=== PATIENT | female | born 1990 | race Caucasian/White ===

== ENCOUNTER 2020-06-04 08:08 | Emergency (ER) | payer OTHER, MEDICAID, SELFPAY ==
--- NOTE | 2020-06-04 08:20 | DI.CT.S_ITS ---
PROCEDURE: CT HEAD/BRAIN WO CON INDICATIONS: Right-sided tingling and weakness TECHNIQUE: Noncontrast 4.5 mm thick angled axial sections acquired from the foramen magnum to the vertex, with coronal and sagittal reformats. For radiation dose reduction, the following was used: automated exposure control, adjustment of mA and/or kV according to patient size. COMPARISON: None. FINDINGS: Image quality: Excellent. CSF spaces: Basal cisterns are patent. No extra-axial fluid collections. Ventricles are normal in size and shape. Brain: No midline shift. No intracranial masses or hemorrhage. Shaw-white matter interface is normal. Skull and face: Calvarium and visualized facial bones are intact, without suspicious lesions. Sinuses: Visualized sinuses and mastoids are clear. IMPRESSION: No acute intracranial finding. Dictated by: Clyde Riggs M.D. on 06/04/2020 at 8:31 Approved by: Clyde Riggs M.D. on 06/04/2020 at 8:33
[2020-06-04 08:22] VITALS: BP 134/70; PULSE 66; RESP 18; TEMP 37; O2SAT 98
--- NOTE | 2020-06-04 08:39 | ED.NEUROSD ---
HPI - Neuro Symptoms/Deficit General Chief Complaint: Neuro Symptoms/Deficit Stated Complaint: Suspects stroke, one-sided tingling Time Seen by Provider: 06/04/20 08:14 Source: patient Mode of arrival: Wheelchair Limitations: no limitations History of Present Illness HPI Narrative: Patient is a 29-year-old female here for evaluation of multiple symptoms to include headache, high blood pressure, head feeling foggy, ?1 side tingling ?. She states that the middle of last week she had an elective . She is not having abdominal tenderness or vaginal bleeding. She was concerned that potentially she is having a stroke, precursor to a stroke, affects from the anesthesia. She took her blood pressure at home today and she states that was elevated. She came with a list of these blood pressures and shows that her systolic was anywhere from 120-140. She also feels like that she is having an irregular heart rhythm. On Anticoagulants: No Review of Systems Constitutional Constitutional: Reports fatigue, Denies fever(s), Reports headache(s) and Reports weakness Eyes Eyes: Reports exophthalmos and Reports change in vision ENT Ears, Nose, Mouth, and Throat: Reports dizziness, Reports headache(s) and Reports disequilibrium Cardiovascular Cardiovascular: Denies chest pain, Reports rapid heart rate, Reports irregular heart rhythm, Reports lightheadedness and Reports dyspnea Respiratory Respiratory: Reports dyspnea Gastrointestinal Gastrointestinal: Denies abdominal pain, Denies change in bowel habits, Denies nausea and Denies vomiting Genitourinary Genitourinary: Denies dysuria Genitourinary: Denies dysuria and Denies vaginal discharge Musculoskeletal Musculoskeletal: Denies back pain, Denies myalgias and Reports tingling Integumentary/Breasts Skin/Breast: Denies lesions and Denies rash Neurologic Neurologic: Denies abnormal movements, Denies abnormal speech, Reports dizziness, Reports headache(s), Reports tingling, Reports disequilibrium and Reports weakness Endocrine Endocrine: Reports fatigue Hematologic/Lymphatic On Anticoagulants: No Allergic/Immunologic Allergic/Immunologic: Denies urticaria Patient History Medical History Hypertension Social History Smoking Status: Current every day smoker Smoking Status: Current every day smoker tobacco type: cigarettes alcohol intake frequency: 0-2 drinks per day Substance Use Type: does not use Exam Initial Vital Signs Initial Vital Signs: Vital Signs Temperature 98.6 F 06/04/20 08:22 Pulse Rate 66 06/04/20 08:22 Respiratory Rate 18 06/04/20 08:22 Blood Pressure 134/70 06/04/20 08:22 Pulse Oximetry 98 06/04/20 08:22 Const General: comfortable and anxious Limitations: mental status not altered HENMT Head: normal to inspection and normocephalic Resp Effort & Inspection: normal respiratory effort Auscultation: clear to auscultation bilaterally Cardio Rate: regular rate Rhythm: regular rhythm GI Inspection: non-distended Skin Lesions: no lesions Rashes: no rashes Neuro General: patient alert, patient awake and patient oriented x3 Cranial Nerves: CN's II-XI intact bilaterally Cognition: normal cognition Speech: speech normal Gait: normal gait Motor: muscle tone normal throughout Sensory Exam: no sensory deficits noted Extrem General: normal to inspection and capillary refill normal Psych Appearance: grossly normal and well kempt Scores GCS Bony coma scale eye opening: Spontaneous Bony coma scale verbal response: Orientated Bony coma scale motor response: Obey commands Bony coma scale total score: 15 Course Orders Ordered: ED Orders 06/04/20 08:15 EKG-12 Lead Stat 06/04/20 08:20 CT head/brain wo con Stat 06/04/20 08:39 Complete Blood Count AUTO DIFF Stat Comprehensive Metabolic Panel Stat Ethanol (ETOH) Stat Lipase Stat Troponin & CK Cardiac Panel Stat Vital Signs Vital signs: Vital Signs - 8 hr 06/04/20 08:22 Temperature 98.6 F Pulse Rate 66 Respiratory Rate 18 Blood Pressure 134/70 Pulse Oximetry 98 MDM - Neuro Symptoms/Deficit Lab Data Attestation: I reviewed the patient's lab results. Result diagrams: 06/04/20 08:39 06/04/20 08:39 Labs: Lab Results 06/04/20 06/04/20 Range/Units 08:39 08:39 WBC 7.3 (4.5-11.0) X10^3/uL RBC 4.11 (4.0-5.2) X10^6/uL Hgb 12.1 (12.0-16.0) g/dL Hct 34.8 L (36-46) % MCV 84.6 (80-100) fL MCH 29.4 (26-34) PG MCHC 34.8 (30-36) % RDW 13.8 (11.6-14.8) % Plt Count 228 (150-400) X10^3/uL Neut % (Auto) 65.3 (50-75) % Lymph % (Auto) 25.9 (25-40) % [place] % (Auto) 6.5 (3-14) % Eos % (Auto) 1.3 L (2-4) % Baso % (Auto) 1.0 (0-2) % Neut # (Auto) 4800 (5903-6089) /uL Lymph # (Auto) 1900 (6961-3752) /uL [place] # (Auto) 500 (0-900) /uL Eos # (Auto) 100 (0-450) /uL Baso # (Auto) 100 (0-100) /uL Sodium 137 (137-145) mmol/L Potassium 3.6 (3.4-5.1) mmol/L Chloride 108 H (98-107) mmol/L Carbon Dioxide 24 (22-32) mmol/L BUN 11 (7-17) mg/dL Creatinine 0.70 (0.52-1.04) mg/dL Estimated GFR > 60.0 (>60) mL/min BUN/Creatinine Ratio 15.7 (6-22) Glucose 119 H (70-100) mg/dL Calcium 9.0 (8.4-10.2) mg/dL Total Bilirubin 0.3 (0.2-1.3) mg/dL AST 23 (14-36) IU/L ALT 14 (<35) IU/L Alkaline Phosphatase 50 (38-126) U/L Total Creatine Kinase 123 (30-135) U/L CK-MB (CK-2) 2.23 (<2.37) ng/mL CK-MB (CK-2) Rel Index 1.8 (1.5-5.0) % Troponin I < 0.012 (0.01-0.034) ng/mL Total Protein 6.8 (6.3-8.2) g/dL Albumin 3.7 (3.5-5.0) g/dL Globulin 3.1 (1.7-4.1) g/dL Albumin/Globulin Ratio 1.2 (1.0-2.8) Lipase 36 (23-300) U/L Ethyl Alcohol < 10 ( - 10) mg/dL Imaging Data CT scan - head: Radiologist's Impression: [address] [id number] Scan ReportSigned Patient: Linda AvilesMR#: [id number]: 1990Acct:[id number]/Sex: 29 / FDate of Service: 06/04/20Loc: EDAccession Number: [id number] Procedure: CT head/brain wo con Ordering Provider: Bony Mary D.O. PROCEDURE: CT HEAD/BRAIN WO CON INDICATIONS: Right-sided tingling and weakness TECHNIQUE: Noncontrast 4.5 mm thick angled axial sections acquired from the foramen magnum to the vertex, with coronal and sagittal reformats. For radiation dose reduction, the following was used: automated exposure control, adjustment of mA and/or kV according to patient size. COMPARISON: None. FINDINGS: Image quality: Excellent. CSF spaces: Basal cisterns are patent. No extra-axial fluid collections. Ventricles are normal in size and shape. Brain: No midline shift. No intracranial masses or hemorrhage. Shaw-white matter interface is normal. Skull and face: Calvarium and visualized facial bones are intact, without suspicious lesions. Sinuses: Visualized sinuses and mastoids are clear. IMPRESSION: No acute intracranial finding. Dictated by: Clyde Riggs M.D. on 06/04/2020 at 8:31 Approved by: Clyde Riggs M.D. on 06/04/2020 at 8:33 ECG Data Attestation: I personally reviewed and interpreted this ECG as follows: Prior ECG tracings: not available for review Interpretation: Sinus bradycardia Ventricular rate of 57 Normal axis Normal QRS Sinus arrhythmia No ST T wave changes MDM Narrative Medical decision making narrative: Patient is very anxious, seems annoyed about the questions that I am asking, has multiple varying positive review of systems. Her head CT EKG labs here and neurologic exam is unremarkable. I have low suspicion for CVA/TIA. I have a very high suspicion that this is an anxiety/mental health component to her symptoms. I tried to provide reassurance to the patient. I did give her information with regard to a primary care provider. I feel that we can hold on further workup for now patient could be safely discharged home. Patient and her mother have bedside expressed understanding and agreement. Discharge Plan Departure Patient Disposition: Home Clinical Impression: Distal paresthesia Instructions: DI for Numbness/Tingling Activity Restrictions/Additional Instructions: You can contact the health resource is coordinator here at [facility] at [phone]. This individual can help you establish a primary provider here in the area. Return to the emergency department for any new or worsening symptoms
[2020-06-04 08:47] LABS: Add Manual Diff / Slide Review NO; Basophils Absolute Auto 100 /uL (0-100); Eosinophils Absolute Auto 100 /uL (0-450); Eosinophils Percent Auto 1.3 % (2-4); Hematocrit 34.8 % (36-46); Hemoglobin 12.1 g/dL (12.0-16.0); Lymphocytes Absolute Auto 1900 /uL (1100-4500); Lymphocytes Percent Auto 25.9 % (25-40); Mean Corpuscular HGB Conc 34.8 % (30-36); Mean Corpuscular Hemoglobin 29.4 PG (26-34); Mean Corpuscular Volume 84.6 fL (80-100); Monocytes Absolute Auto 500 /uL (0-900); Monocytes Percent Auto 6.5 % (3-14); Neutrophils Absolute Auto 4800 /uL (1500-7000); Neutrophils Percent Auto 65.3 % (50-75); Platelet Count 228 X10^3/uL (150-400); Red Blood Cell Count 4.11 X10^6/uL (4.0-5.2); Red Cell Distribution Width 13.8 % (11.6-14.8); White Blood Cell Count 7.3 X10^3/uL (4.5-11.0)
[2020-06-04 08:58] LABS: Alanine Aminotransferase 14 IU/L (<35); Albumin 3.7 g/dL (3.5-5.0); Albumin Globulin Ratio 1.2 (1.0-2.8); Alkaline Phosphatase 50 U/L (38-126); Aspartate Aminotransferase 23 IU/L (14-36); BUN Creatinine Ratio 15.7 (6-22); Bilirubin Total 0.3 mg/dL (0.2-1.3); Blood Urea Nitrogen 11 mg/dL (7-17); Carbon Dioxide 24 mmol/L (22-32); Chloride 108 mmol/L (98-107); Creatine Kinase 123 U/L (30-135); Estimated Glomerular Filt Rate > 60.0 mL/min (>60); Ethanol (ETOH) < 10 mg/dL; Globulin 3.1 g/dL (1.7-4.1); Glucose 119 mg/dL (70-100); HEMOLYSIS < 15 (0-50); Lipase 36 U/L (23-300); Potassium 3.6 mmol/L (3.4-5.1); Sodium 137 mmol/L (137-145); Total Protein 6.8 g/dL (6.3-8.2)
[2020-06-04 09:08] LABS: Troponin I < 0.012 ng/mL (0.01-0.034)
[2020-06-04 09:13] LABS: CKMB % Relative Index 1.8 % (1.5-5.0); Creatine Kinase MB 2.23 ng/mL (<2.37)
[2020-06-04 09:30] VITALS: BP 132/72; PULSE 62; RESP 16; O2SAT 99
== END 2020-06-04 09:35 | disposition home or self-care (01) ==
PROVIDERS: Emergency Provider Emergency Medicine
DX: R20.2 Paresthesia of skin (principal); I10 Essential (primary) hypertension; H53.9 Unspecified visual disturbance; R06.00 Dyspnea, unspecified; R00.1 Bradycardia, unspecified
CPT/HCPCS: 36415; 70450; 80053; 80320; 82550; 82553; 83690; 84484; 85025; 93005; 99281; 99284

== ENCOUNTER → 2020-09-04 11:36 | Outpatient (CLI) | payer OTHER, MEDICAID, SELFPAY ==
--- NOTE | 2020-09-04 11:37 | DI.RAD.S_ITS ---
PROCEDURE: XR SHOULDER RT MIN 2V INDICATIONS: pain TECHNIQUE: 3 views of the shoulder were acquired. COMPARISON: None. FINDINGS: Bones: No fractures or dislocations. No suspicious bony lesions. Visualized ribs appear intact. Soft tissues: No suspicious soft tissue calcifications. IMPRESSION: No evidence acute bony abnormality of the right shoulder. If clinical suspicion and/or symptoms persist, further assessment with repeat plain films, or advanced imaging (e.g., CT, MRI, or bone scan) may be helpful for further assessment. Dictated by: Davian Evans M.D. on 09/04/2020 at 12:28 Approved by: Davian Evans M.D. on 09/04/2020 at 12:29
== END ==
PROVIDERS: PCP Family Medicine; Referring Provider Family Medicine; Visit Provider Family Medicine
DX: M25.519 Pain in unspecified shoulder (principal)
CPT/HCPCS: 73030

== ENCOUNTER 2021-01-19 19:34 | Emergency (ER) | payer OTHER, MEDICAID, SELFPAY ==
[2021-01-19 20:00] VITALS: BP 142/77; PULSE 106; RESP 15; TEMP 36.4; O2SAT 100; BMI 28.0
[2021-01-19 20:17] LABS: Add Manual Diff / Slide Review NO; Basophils Absolute Auto 100 /uL (0-100); Basophils Percent Auto 0.8 % (0-2); Eosinophils Absolute Auto 100 /uL (0-450); Eosinophils Percent Auto 0.6 % (2-4); Hematocrit 40.5 % (36-46); Hemoglobin 13.5 g/dL (12.0-16.0); Lymphocytes Absolute Auto 2400 /uL (1100-4500); Lymphocytes Percent Auto 25.9 % (25-40); Mean Corpuscular HGB Conc 33.4 % (30-36); Mean Corpuscular Hemoglobin 28.3 PG (26-34); Mean Corpuscular Volume 84.8 fL (80-100); Monocytes Absolute Auto 500 /uL (0-900); Monocytes Percent Auto 5.9 % (3-14); Neutrophils Absolute Auto 6100 /uL (1500-7000); Neutrophils Percent Auto 66.8 % (50-75); Platelet Count 222 X10^3/uL (150-400); Red Blood Cell Count 4.77 X10^6/uL (4.0-5.2); Red Cell Distribution Width 12.6 % (11.6-14.8); White Blood Cell Count 9.2 X10^3/uL (4.5-11.0)
[2021-01-19 20:25] LABS: BUN Creatinine Ratio 12.8 (6-22); Blood Urea Nitrogen 11 mg/dL (7-17); Carbon Dioxide 26 mmol/L (22-32); Chloride 104 mmol/L (98-107); Estimated Glomerular Filt Rate > 60.0 mL/min (>60); Glucose 91 mg/dL (70-100); Potassium 3.8 mmol/L (3.4-5.1); Sodium 138 mmol/L (137-145)
[2021-01-19 20:26] LABS: Alanine Aminotransferase 23 IU/L (<35); Albumin 4.6 g/dL (3.5-5.0); Albumin Globulin Ratio 1.3 (1.0-2.8); Alkaline Phosphatase 61 U/L (38-126); Aspartate Aminotransferase 29 IU/L (14-36); Bilirubin Total 1.1 mg/dL (0.2-1.3); Calcium 9.4 mg/dL (8.4-10.2); Globulin 3.5 g/dL (1.7-4.1); HEMOLYSIS < 15 (0-50); Lipase 38 U/L (23-300); Total Protein 8.1 g/dL (6.3-8.2)
--- NOTE | 2021-01-19 21:29 | DI.CT.S_ITS ---
PROCEDURE: CT ABDOMEN PELVIS W CON INDICATIONS: severe RLQ pain, appy? TECHNIQUE: After the administration of oral and IV contrast, axial sections were acquired from the lung bases to the pubic symphysis. Coronal and sagittal reformats were performed. For radiation dose reduction, the following was used: automated exposure control, adjustment of mA and/or kV according to patient size. COMPARISON: None. FINDINGS: Image quality: Excellent. Lung bases: Unremarkable. Heart: No significant findings. ABDOMEN: Liver: There is mild focal fatty infiltration in the anterior left hepatic lobe. Gallbladder: Unremarkable. Biliary ducts: Unremarkable. Pancreas: Unremarkable. Spleen: Unremarkable. Adrenal Glands: Unremarkable. Kidneys and Ureters: Unremarkable. Stomach and Bowel: Stomach and small bowel loops are normal in caliber and wall thickness. The appendix is normal in size with a small punctate appendiculith at its base but no inflammatory changes to suggest appendicitis. There are few colonic diverticula without acute diverticulitis. The descending and rectosigmoid colon demonstrate mild segmental wall thickening suggestive of a mild colitis. Peritoneum: There is a small amount of free fluid in the pelvis which appears within physiologic limits. No free air. Ventral Wall: No hernia. Abdominal Nodes: No retroperitoneal or mesenteric adenopathy by size criteria. Vessels: Aorta and inferior vena cava are normal in size. PELVIS: Pelvic Organs: There is a peripherally enhancing cyst within the right ovary measuring up to 2.0 cm consistent with a physiologic cyst. Uterus and ovaries appear within normal size limits. Bladder: Unremarkable. Pelvic Nodes: No enlarged lymph nodes. Miscellaneous: No inguinal hernias are seen. Bones: Unremarkable. IMPRESSION: 1. No evidence of appendicitis. 2. Peripherally enhancing cyst in the right ovary likely represents a physiologic cyst such as a corpus luteal cyst. 3. Mild segmental wall thickening in the descending and sigmoid colon suggestive of a mild colitis. Dictated by: Dewey Jurado M.D. on 01/19/2021 at 21:47 Approved by: Dewey Jurado M.D. on 01/19/2021 at 21:56
--- NOTE | 2021-01-19 21:29 | ED_ITS ---
HPI - Abdominal Pain General Chief Complaint: Abdominal Pain Stated Complaint: Possible Appe, Rt Sided Abd Pain Time Seen by Provider: 01/19/21 21:29 Source: patient Mode of arrival: Ambulatory Limitations: no limitations History of Present Illness HPI narrative: 30-year-old female daily smoker with noncontributory medical history presents with gradually worsening generalized and now right lower quadrant pain over the past 20 hours or so. Initially she just felt a bit queasy and unwell with generalized pain that has since located to her right lower quadrant. She has a decreased appetite and is nauseated but has not had any vomiting. She has felt chills but no measured fever. She states it is worse when she moves and improves with rest. She denies any change in bowel or bladder habits. She had clear liquids just prior to arrival and last had any food at about 2-3 p.m.. Related Data Home Medications Medication Instructions Recorded Confirmed No Known Home Medications 09/04/20 09/25/20 Allergies Allergy/AdvReac Type Severity Reaction Status Date / Time tramadol AdvReac Mild Hives, Verified 01/19/21 20:00 Vomitting Review of Systems Review of Systems Narrative: GENERAL: Denies chills, fatigue, malaise, fever, sweats. HEENT: Denies sinus pain, ear pain, sore throat, difficulty swallowing, di zziness. RESPIRATORY: Denies dyspnea, cough, wheezing, hemoptysis, sputum. CARDIOVASCULAR: Denies chest pain, palpitations, orthopnea, edema, GASTROINTESTINAL: See HPI : Denies dysuria, frequency, incontinence, hematuria, urinary retention. MUSCULOSKELETAL: denies weakness, joint pain, or bony pain SKIN: Denies rash, skin lesions, or other NEUROLOGIC: Denies weakness, headache, numbness, change in speech, confusion, seizures, incoordination. PSYCHIATRIC: No concerning psychosocial issues. 12 point review of systems is negative except for those stated above Patient History Medical History Acne Anxiety Benign familial tremor (~2017) Cardiac arrhythmia (~2019) Cervical somatic dysfunction Chicken pox (~1992) Chronic back pain (~2017) Chronic bilateral thoracic back pain Chronic low back pain Chronic neck pain Cranial somatic dysfunction Fractures (~2017) Headache (~2017) Hearing loss (~2017) Heavy menstrual period (~2003) Hip pain Hypertension (~2017) Lumbar region somatic dysfunction Memory problem (~2017) Migraines (~2019) Painful menstrual periods (~2003) Pelvic somatic dysfunction PTSD (post-traumatic stress disorder) (~2017) Recurrent sinusitis (~2019) Restless leg syndrome (~2019) Sacral region somatic dysfunction Scoliosis (~2004) Segmental and somatic dysfunction of abdomen and other regions Thoracic region somatic dysfunction Trauma (~2017) Vertigo (~2017) Vision disorder Vocal cord paralysis (~2017) Surgical History (~05/30/20) Anesthesia History of tonsillectomy (~2006) Family History Mother Cancer Hyperlipidemia Stroke Low blood pressure Kidney disease Grandfather History of emphysema Grandfather History of heart disease Father No problems noted. Social History Smoking Status: Current every day smoker alcohol intake: never substance use type: marijuana Smoking Status: Current every day smoker tobacco type: cigarettes alcohol intake frequency: holidays/special occasions only Substance Use Type: does not use Exam Narrative Exam Narrative: GENERAL: [30 year old patient appears stated age. Well-developed patient, in mild distress. Obviously uncomfortable, walking a bit hunched over, clearly in pain HEAD: Atraumatic. Normocephalic. EYES: Pupils equal round and reactive. Extraocular motions intact. No scleral icterus. No injection or drainage. ENT: Nose without bleeding, purulent drainage. Throat without erythema, tonsillar hypertrophy or exudate. Airway patent. NECK: Trachea midline. Non tender CARDIOVASCULAR: Regular rate and rhythm without murmurs, gallops, or rubs. RESPIRATORY: Clear to auscultation. Breath sounds equal bilaterally. No wheezes, rales, or rhonchi. GASTROINTESTINAL: Abdomen soft, positive McBurney's with minimal local peritonitis, positive Rovsing's, positive heel tap and psoas EXTREMITIES: No edema or joint tenderness. BACK: Nontender without deformity or crepitance. No flank tenderness. NEURO: AOx3. SKIN: No rash or erythema of visible areas Initial Vital Signs Initial Vital Signs: Vital Signs Temperature 97.6 F 01/19/21 20:00 Pulse Rate 106 H 01/19/21 20:00 Respiratory Rate 15 01/19/21 20:00 Blood Pressure 142/77 H 01/19/21 20:00 Pulse Oximetry 100 01/19/21 20:00 Course Orders Ordered: ED Orders 01/19/21 21:29 CT abdomen pelvis w con Stat Discontinued Medications Ketorolac Tromethamine (Ketorolac 30 Mg/Ml Vial) 15 mg IV NOW ONE Stop: 01/19/21 22:57 Last Admin: 01/19/21 23:16 Dose: Not Given Documented by: KEYUR Vital Signs Vital signs: Vital Signs - 8 hr 01/19/21 23:29 Pulse Rate 88 Blood Pressure 120/63 Pulse Oximetry 100 MDM - Abdominal Pain Lab Data Result diagrams: 01/19/21 20:05 01/19/21 20:05 Labs: Lab Results 01/19/21 01/19/21 Range/Units 20:05 20:05 WBC 9.2 (4.5-11.0) X10^3/uL RBC 4.77 (4.0-5.2) X10^6/uL Hgb 13.5 (12.0-16.0) g/dL Hct 40.5 (36-46) % MCV 84.8 (80-100) fL MCH 28.3 (26-34) PG MCHC 33.4 (30-36) % RDW 12.6 (11.6-14.8) % Plt Count 222 (150-400) X10^3/uL Neut % (Auto) 66.8 (50-75) % Lymph % (Auto) 25.9 (25-40) % [place] % (Auto) 5.9 (3-14) % Eos % (Auto) 0.6 L (2-4) % Baso % (Auto) 0.8 (0-2) % Neut # (Auto) 6100 (0789-6237) /uL Lymph # (Auto) 2400 (4000-2074) /uL [place] # (Auto) 500 (0-900) /uL Eos # (Auto) 100 (0-450) /uL Baso # (Auto) 100 (0-100) /uL Sodium 138 (137-145) mmol/L Potassium 3.8 (3.4-5.1) mmol/L Chloride 104 (98-107) mmol/L Carbon Dioxide 26 (22-32) mmol/L BUN 11 (7-17) mg/dL Creatinine 0.86 (0.52-1.04) mg/dL Estimated GFR > 60.0 (>60) mL/min BUN/Creatinine Ratio 12.8 (6-22) Glucose 91 (70-100) mg/dL Calcium 9.4 (8.4-10.2) mg/dL Total Bilirubin 1.1 (0.2-1.3) mg/dL AST 29 (14-36) IU/L ALT 23 (<35) IU/L Alkaline Phosphatase 61 (38-126) U/L Total Protein 8.1 (6.3-8.2) g/dL Albumin 4.6 (3.5-5.0) g/dL Globulin 3.5 (1.7-4.1) g/dL Albumin/Globulin Ratio 1.3 (1.0-2.8) Lipase 38 (23-300) U/L Point of care testing: Point of Care Testing Test Results Negative Urine Dip Bedside Urine Glucose Negative Bedside Urine Bilirubin - Negative Bedside Urine Ketone - Negative Urine Specific [place] 1.025 Bedside Urine Occult Blood - Negative Bedside Urine pH 6.0 Bedside Urine Protein - Negative Bedside Urine Urobilinogen - Negative Bedside Urine Nitrite - Negative Bedside Urine Leukocytes - Negative Esterase Imaging Data CT scan - abdomen/pelvis: Radiologist's Impression: [facility] [id number] CT Scan Report Signed Patient: Dyana Aviles MR#: [id number] : 1990 Acct:[id number] Age/Sex: 30 / F Date of Service: 01/19/21 Loc: ED Accession Number: [id number] ?? Procedure: CT abdomen pelvis w con Ordering Provider: Alvarado Brown D.O. PROCEDURE:? CT ABDOMEN PELVIS W CON ? INDICATIONS:? severe RLQ pain, appy? ? TECHNIQUE:? After the administration of oral and IV contrast, axial sections were acquired from the lung bases to the pubic symphysis.? Coronal and sagittal reformats were performed.? For radiation dose reduction, the following was used:? automated exposure control, adjustment of mA and/or kV according to patient size. ? COMPARISON:? None. ? FINDINGS:? Image quality:? Excellent.? ? Lung bases:? Unremarkable.? ? Heart:? No significant findings. ? ? ABDOMEN: Liver:? There is mild focal fatty infiltration in the anterior left hepatic lobe.? ? Gallbladder:? Unremarkable.? ? Biliary ducts:? Unremarkable.? ? Pancreas:? Unremarkable.? ? Spleen:? Unremarkable.? ? Adrenal Glands:? Unremarkable.? ? Kidneys and Ureters:? Unremarkable.? ? ? Stomach and Bowel:? Stomach and small bowel loops are normal in caliber and wall thickness.? The appendix is normal in size with a small punctate appendiculith at its base but no inflammatory changes to suggest appendicitis.? There are few colonic diverticula without acute diverticulitis.? The descending and rectosigmoid colon demonstrate mild segmental wall thickening suggestive of a mild colitis. Peritoneum:? There is a small amount of free fluid in the pelvis which appears within physiologic limits.? No free air.? ? Ventral Wall: ? No hernia.? Abdominal Nodes:? No retroperitoneal or mesenteric adenopathy by size criteria.? Vessels:? Aorta and inferior vena cava are normal in size.? ? PELVIS: Pelvic Organs:? There is a peripherally enhancing cyst within the right ovary measuring up to 2.0 cm consistent with a physiologic cyst.? Uterus and ovaries appear within normal size limits.? ? Bladder:? Unremarkable.? ? Pelvic Nodes: No enlarged lymph nodes.? Miscellaneous: No inguinal hernias are seen. ? ? ? Bones:? Unremarkable.? IMPRESSION:? ? 1.? No evidence of appendicitis. ? 2. Peripherally enhancing cyst in the right ovary likely represents a physiologic cyst such as a corpus luteal cyst. ? 3. Mild segmental wall thickening in the descending and sigmoid colon suggestive of a mild colitis.? ? ? Dictated by: Dewey Jurado M.D. on 01/19/2021 at 21:47 ? ? Approved by: Dewey Jurado M.D. on 01/19/2021 at [facility] Narrative Medical decision making narrative: 30-year-old female presents with gradually worsening right lower quadrant pain. She has had no fever and no elevated white blood cell count. Concern for appendicitis versus kidney stone versus ovary. CT scan is very reassuring and clearly visualize his appendix which appears normal, no kidney stone noted, suggestion of ovarian cyst noted. Patient's pain is well controlled, no vomiting, tolerating orals, return precautions given and questions answered to her apparent satisfaction Discharge Plan Departure Patient Disposition: Home Clinical Impression: Acute right lower quadrant pain Instructions: DI for Abdominal Pain-Adult Activity Restrictions/Additional Instructions: *You have been diagnosed with [right lower quadrant pain without evidence of appendicitis, kidney stone, bowel obstruction or other significant diagnosis. CT scan suggests a likely ovarian cyst. *What to do: *Please continue to take your regular medications as directed. [ ] New medication prescriptions sent to your pharmacy: [ ] [ ] New medication written as a paper prescription [ x] No new medications given *Please follow up with your primary care provider in 2-3 days, call for an appointment. Let them know you were seen in the Emergency Department and that we ask that you be seen in follow up. We will electronically transmit a record of today's note if your PCP is in our system *If you do not have a primary care provider please contact the [facility] Resource line at [phone]. They will ask some questions about your medical history and help get you set up with a doctor in the community. *Return to Emergency Department if you should have any new, worsening or concerning symptoms, such as [fever greater than 101 F, shaking chills, worsening pain, persistent vomiting or other bothersome symptoms] Prescriptions: No Action No Known Home Medications RF: 0 Referrals: Sigifredo Moran DO [Primary Care Provider] -
[2021-01-19 23:29] VITALS: BP 120/63; PULSE 88; O2SAT 100
== END 2021-01-19 23:30 | disposition home or self-care (01) ==
PROVIDERS: Emergency Provider Emergency Medicine; PCP Family Medicine
DX: R10.31 Right lower quadrant pain (principal); R11.0 Nausea
CPT/HCPCS: 36415; 74177; 80053; 81003; 81025; 83690; 85025; 99284; Q9967

== ENCOUNTER 2021-12-22 17:27 | Emergency (ER) | payer OTHER, MEDICAID, SELFPAY ==
[2021-12-22] VITALS (9 sets, daily range): BP systolic 124–134; BP diastolic 67–85; PULSE 70–112; RESP 12–22; TEMP 36.7; O2SAT 98–100; BMI 29.6
[2021-12-22 18:15] LABS: Add Manual Diff / Slide Review NO; Basophils Absolute Auto 100 /uL (0-100); Basophils Percent Auto 0.8 % (0-2); Eosinophils Absolute Auto 100 /uL (0-450); Hematocrit 38.1 % (36-46); Hemoglobin 13.2 g/dL (12.0-16.0); Lymphocytes Absolute Auto 1800 /uL (1100-4500); Mean Corpuscular HGB Conc 34.6 % (30-36); Mean Corpuscular Hemoglobin 29.1 PG (26-34); Mean Corpuscular Volume 84.1 fL (80-100); Monocytes Absolute Auto 400 /uL (0-900); Monocytes Percent Auto 5.9 % (3-14); Neutrophils Absolute Auto 4900 /uL (1500-7000); Neutrophils Percent Auto 67.3 % (50-75); Platelet Count 215 X10^3/uL (150-400); Red Blood Cell Count 4.53 X10^6/uL (4.0-5.2); Red Cell Distribution Width 13.6 % (11.6-14.8); White Blood Cell Count 7.3 X10^3/uL (4.5-11.0)
[2021-12-22 18:31] LABS: Alanine Aminotransferase 34 IU/L (<35); Albumin 4.2 g/dL (3.5-5.0); Albumin Globulin Ratio 1.2 (1.0-2.8); Alkaline Phosphatase 58 U/L (38-126); Aspartate Aminotransferase 36 IU/L (14-36); BUN Creatinine Ratio 14.6 (6-22); Bilirubin Total 1.3 mg/dL (0.2-1.3); Blood Urea Nitrogen 14 mg/dL (7-17); Calcium 8.7 mg/dL (8.4-10.2); Carbon Dioxide 27 mmol/L (22-32); Chloride 102 mmol/L (98-107); Estimated Glomerular Filt Rate > 60 mL/min (>60); Globulin 3.5 g/dL (1.7-4.1); Glucose 101 mg/dL (70-100); HEMOLYSIS < 15 (0-50); Lipase 44 U/L (23-300); Potassium 3.8 mmol/L (3.4-5.1); Sodium 137 mmol/L (137-145); Total Protein 7.7 g/dL (6.3-8.2)
--- NOTE | 2021-12-22 19:17 | ED.ABDPAIN ---
HPI - Abdominal Pain General Chief Complaint: Abdominal Pain Stated Complaint: hernia?/abdn pain/x4 days Time Seen by Provider: 12/22/21 18:11 Source: patient Mode of arrival: Ambulatory History of Present Illness HPI narrative: 31F daily smoker without any chronic medical problems presents with significant other and a chief complaint of 3-4 days of worsening right upper quadrant and epigastric pain. She states that it significantly worse when she eats or drinks as well as moves. She states it improves if she does not eat and sits still. She is nauseated but denies any vomiting. She is had no fever or chills and denies any dietary change other than lack of oral intake. She is become fatigued and a bit lightheaded. She states the pain radiates to her back and is quite severe at times. She is become what she describes as a bit ?backed up? and has had decreased bowel movements for the past few days. She denies any urinary complaints. Related Data Home Medications Medication Instructions Recorded Confirmed No Known Home Medications 09/04/20 04/16/21 Allergies Allergy/AdvReac Type Severity Reaction Status Date / Time tramadol AdvReac Mild Hives, Verified 04/16/21 15:38 Vomitting Review of Systems Review of Systems Narrative: GENERAL: See HPI HEENT: Denies sinus pain, ear pain, sore throat, difficulty swallowing, dizziness. RESPIRATORY: Denies dyspnea, cough, wheezing, hemoptysis, sputum. CARDIOVASCULAR: Denies chest pain, palpitations, orthopnea, edema, GASTROINTESTINAL: See HPI : Denies dysuria, frequency, incontinence, hematuria, urinary retention. MUSCULOSKELETAL: denies weakness, joint pain, or bony pain SKIN: Denies rash, skin lesions, or other NEUROLOGIC: Denies weakness, headache, numbness, change in speech, confusion, seizures, incoordination. PSYCHIATRIC: No concerning psychosocial issues. 12 point review of systems is negative except for those stated above Patient History Medical History Acne Anxiety Benign familial tremor (~2017) Cardiac arrhythmia (~2019) Cervical somatic dysfunction Chicken pox (~1992) Chronic back pain (~2017) Chronic bilateral thoracic back pain Chronic low back pain Chronic neck pain Cranial somatic dysfunction Fractures (~2017) Headache (~2017) Hearing loss (~2017) Heavy menstrual period (~2003) Hip pain Hypertension (~2017) Lumbar region somatic dysfunction Memory problem (~2017) Migraines (~2019) Pain provoked by trauma Painful menstrual periods (~2003) Pelvic somatic dysfunction PTSD (post-traumatic stress disorder) (~2017) Recurrent sinusitis (~2019) Restless leg syndrome (~2019) Rib pain on right side Sacral region somatic dysfunction Scoliosis (~2004) Segmental and somatic dysfunction of abdomen and other regions Segmental and somatic dysfunction of rib cage Thoracic region somatic dysfunction Trauma (~2017) Vertigo (~2017) Vision disorder Vocal cord paralysis (~2017) Surgical History (~05/30/20) Anesthesia History of tonsillectomy (~2006) Family History Mother Cancer Hyperlipidemia Stroke Low blood pressure Kidney disease Grandfather History of emphysema Grandfather History of heart disease Father No problems noted. Social History Smoking Status: Current every day smoker alcohol intake: never substance use type: marijuana Smoking Status: Current every day smoker tobacco type: cigarettes alcohol intake frequency: holidays/special occasions only Substance Use Type: marijuana Exam Narrative Exam Narrative: GENERAL: [31] year old patient appears stated age. Well-developed patient, in mild distress. HEAD: Atraumatic. Normocephalic. EYES: Pupils equal round and reactive. Extraocular motions intact. No scleral icterus. No injection or drainage. ENT: Nose without bleeding, purulent drainage. Throat without erythema, tonsillar hypertrophy or exudate. Airway patent. NECK: Trachea midline. Non tender CARDIOVASCULAR: Regular rate and rhythm without murmurs, gallops, or rubs. RESPIRATORY: Clear to auscultation. Breath sounds equal bilaterally. No wheezes, rales, or rhonchi. GASTROINTESTINAL: Abdomen soft, significantly tender in the epigastrium and right upper quadrant, nondistended. EXTREMITIES: No edema or joint tenderness. BACK: Nontender without deformity or crepitance. No flank tenderness. NEURO: AOx3. SKIN: No rash or erythema of visible areas Initial Vital Signs Initial Vital Signs: Vital Signs Pulse Rate 112 H 12/22/21 17:38 Blood Pressure 134/85 12/22/21 17:38 Pulse Oximetry 98 09/18/22 17:38 Course Orders Ordered: ED Orders 12/22/21 17:50 Complete Blood Count AUTO DIFF Stat Comprehensive Metabolic Panel Stat Lipase Stat 12/22/21 18:23 EKG-12 Lead Stat 12/22/21 19:26 US abdomen limited Stat Discontinued Medications Hydrocodone Bitart/Acetaminophen (Hydrocodone/Acet 5/325 Prepack) 1 bottle MISC SEEINSTR ONE Stop: 12/22/21 20:11 Last Admin: 12/22/21 20:18 Dose: 1 bottle Documented By: ROLANDA Ondansetron HCl (Ondansetron 4 Mg Odt Prepack) 1 bottle MISC SEEINSTR ONE Stop: 12/22/21 20:11 Last Admin: 12/22/21 20:18 Dose: 1 bottle Documented By: ROLANDA Vital Signs Vital signs: Vital Signs - 8 hr 12/22/21 18:05 12/22/21 17:38 12/22/21 17:38 Temperature 98.1 F Pulse Rate 110 H 112 H Respiratory Rate 18 Blood Pressure 134/85 134/85 Pulse Oximetry 98 98 Oxygen Delivery Method Room Air 12/22/21 18:00 12/22/21 18:21 12/22/21 18:21 Temperature Pulse Rate 95 H 84 Respiratory Rate 12 Blood Pressure 133/77 Pulse Oximetry 100 100 Oxygen Delivery Method 12/22/21 18:30 12/22/21 18:30 12/22/21 19:00 Temperature Pulse Rate 78 Respiratory Rate 17 Blood Pressure 134/74 124/68 Pulse Oximetry 100 Oxygen Delivery Method 12/22/21 19:00 12/22/21 19:16 12/22/21 19:16 Temperature Pulse Rate 70 76 Respiratory Rate 22 Blood Pressure 130/70 Pulse Oximetry 100 Oxygen Delivery Method 12/22/21 19:30 12/22/21 19:30 12/22/21 20:00 Temperature Pulse Rate 71 Respiratory Rate 19 Blood Pressure 133/73 127/67 Pulse Oximetry 99 Oxygen Delivery Method 12/22/21 20:00 Temperature Pulse Rate 72 Respiratory Rate Blood Pressure Pulse Oximetry 99 Oxygen Delivery Method MDM - Abdominal Pain Lab Data Result diagrams: 12/22/21 17:50 12/22/21 17:50 Labs: Lab Results 12/22/21 12/22/21 Range/Units 17:50 17:50 WBC 7.3 (4.5-11.0) X10^3/uL RBC 4.53 (4.0-5.2) X10^6/uL Hgb 13.2 (12.0-16.0) g/dL Hct 38.1 (36-46) % MCV 84.1 (80-100) fL MCH 29.1 (26-34) PG MCHC 34.6 (30-36) % RDW 13.6 (11.6-14.8) % Plt Count 215 (150-400) X10^3/uL Neut % (Auto) 67.3 (50-75) % Lymph % (Auto) 25.0 (25-40) % [place] % (Auto) 5.9 (3-14) % Eos % (Auto) 1.0 L (2-4) % Baso % (Auto) 0.8 (0-2) % Neut # (Auto) 4900 (8889-5842) /uL Lymph # (Auto) 1800 (3141-7877) /uL [place] # (Auto) 400 (0-900) /uL Eos # (Auto) 100 (0-450) /uL Baso # (Auto) 100 (0-100) /uL Sodium 137 (137-145) mmol/L Potassium 3.8 (3.4-5.1) mmol/L Chloride 102 (98-107) mmol/L Carbon Dioxide 27 (22-32) mmol/L BUN 14 (7-17) mg/dL Creatinine 0.96 (0.52-1.04) mg/dL Estimated GFR > 60 (>60) mL/min BUN/Creatinine Ratio 14.6 (6-22) Glucose 101 H (70-100) mg/dL Calcium 8.7 (8.4-10.2) mg/dL Total Bilirubin 1.3 (0.2-1.3) mg/dL AST 36 (14-36) IU/L ALT 34 (<35) IU/L Alkaline Phosphatase 58 (38-126) U/L Total Protein 7.7 (6.3-8.2) g/dL Albumin 4.2 (3.5-5.0) g/dL Globulin 3.5 (1.7-4.1) g/dL Albumin/Globulin Ratio 1.2 (1.0-2.8) Lipase 44 (23-300) U/L Point of care testing: Point of Care Testing Test Results Negative Urine Dip Bedside Urine Glucose Negative Bedside Urine Bilirubin - Negative Bedside Urine Ketone - Negative Urine Specific [place] 1.015 Bedside Urine Occult Blood - Negative Bedside Urine pH 6.0 Bedside Urine Protein - Negative Bedside Urine Urobilinogen - Negative Bedside Urine Nitrite - Negative Bedside Urine Leukocytes - Negative Esterase Imaging Data US - abdomen: Radiologist's Impression: Close Abdomen Ultrasound (Signed) Dewey Jurado - 12/22/21 Abdomen/Pelvis CT (Signed) Dewey Jurado - 01/19/21 Shoulder X-Ray (Signed) Davian Evans - 09/04/[address] (Signed) lCyde Riggs - 06/04/20 [place] [address] Ultrasound Report Signed Patient: Dyana Aviles MR#: [id number] : 1990 Acct:[id number] Age/Sex: 31 / F Date of Service: 12/22/21 Loc: ED Accession Number: [id number] ?? Procedure: US abdomen limited Ordering Provider: Alvarado Brown D.O. PROCEDURE: US ABDOMEN LIMITED ? INDICATIONS:? POST PRANDIAL RUQ PAIN ? TECHNIQUE:? Real-time focused scanning was performed of the abdomen, with image documentation.? ? COMPARISON:? None. ? FINDINGS:? ? The liver is normal in size and echotexture.? No discrete hepatic mass identified. ? Gallbladder demonstrates no stones, wall thickening, or pericholecystic fluid. ? No intra or extrahepatic biliary ductal dilatation. ? The visualized pancreas appears unremarkable sonographically. ? IMPRESSION:? ? 1. No evidence of cholelithiasis or cholecystitis. ? ? Dictated by: Dewey Jurado M.D. on 12/22/2021 at 20:36 ? ? Approved by: Dewey Jurado M.D. on 12/22/2021 at 20:37 ? MDM Narrative Medical decision making narrative: Multiple etiologies for patient's symptoms considered include, but not limited to: [Gallbladder disease versus pancreatitis versus Bowel obstruction versus kidney stone versus diverticulitis versus other Patient's symptoms improved over duration of stay with above-stated therapies. History, physical exam, labs, imaging, and response to therapies have been reassuring. Findings and discharge diagnosis discussed with patient/family followed by verbalization of understanding Return precautions discussed with patient/family whom verbalize understanding. Pain has been well controlled and patient is tolerating oral hydration. Discharge Plan Departure Patient Disposition: Home Clinical Impression: Acute epigastric pain Instructions: DI for Epigastric Pain Activity Restrictions/Additional Instructions: *You have been diagnosed with [epigastric and right upper quadrant pain. As we discussed your history and physical exam are suggestive of the possibility of gallbladder disease, however the labs and ultrasound are very reassuring and there is no evidence of the need for surgical intervention at this time. We did discuss the possibility of pursuing a CT scan today but agree that holding off for now is appropriate] *Please follow up with your primary care provider in 2-3 days, call for an appointment. Let them know you were seen in the Emergency Department and that we ask that you be seen in follow up. We will electronically transmit a record of today's note if your PCP is in our system *Please consider a clear liquid diet for the next 24-48 hours and then slowly advance to regular as tolerated. Also, try to avoid alcohol, nicotine, caffeine, spicy, acidic or fatty foods as this may worsen your symptoms *If you do not have a primary care provider please contact the [facility] Resource line at [phone]. They will ask some questions about your medical history and help get you set up with a doctor in the community. *Return to Emergency Department if you should have any new, worsening or concerning symptoms, such as [fever greater than 101 F, shaking chills, worsening pain, persistent vomiting or other bothersome symptoms] Prescriptions: No Action No Known Home Medications Referrals: Eunice Murillo MD [Physician] - Kings Moran DO [Primary Care Provider] - Visit Report Forms: Patient Portal/API
--- NOTE | 2021-12-22 19:26 | DI.US.S_ITS ---
PROCEDURE: US ABDOMEN LIMITED INDICATIONS: POST PRANDIAL RUQ PAIN TECHNIQUE: Real-time focused scanning was performed of the abdomen, with image documentation. COMPARISON: None. FINDINGS: The liver is normal in size and echotexture. No discrete hepatic mass identified. Gallbladder demonstrates no stones, wall thickening, or pericholecystic fluid. No intra or extrahepatic biliary ductal dilatation. The visualized pancreas appears unremarkable sonographically. IMPRESSION: 1. No evidence of cholelithiasis or cholecystitis. Dictated by: Dewey Jurado M.D. on 12/22/2021 at 20:36 Approved by: Dewey Jurado M.D. on 12/22/2021 at 20:37
[2021-12-22] MEDS: HYDROCODONE/ACET 5/325 PREPACK 1 BOTTLE MISC (20:18)
[2021-12-22] MEDS: ONDANSETRON 4 MG ODT PREPACK 1 BOTTLE MISC (20:18)
== END 2021-12-22 20:25 | disposition home or self-care (01) ==
PROVIDERS: Emergency Medicine; Emergency Provider Emergency Medicine; PCP Family Medicine
DX: R10.13 Epigastric pain (principal); R10.11 Right upper quadrant pain
CPT/HCPCS: 36415; 76705; 80053; 81003; 81025; 83690; 85025; 93005; 93010; 99284

== ENCOUNTER → 2022-01-27 16:38 | Outpatient (CLI) | payer OTHER, MEDICAID, SELFPAY ==
--- NOTE | 2022-01-27 16:39 | DI.US.S_ITS ---
PROCEDURE: US PELVIC COMPLETE INDICATIONS: Ovarian cyst/dysmenorrhea TECHNIQUE: Real-time scanning was performed of the pelvic organs, with image documentation. Additional endovaginal scanning was necessary due to incomplete visualization of the adnexal and endometrial structures by transabdominal scanning. COMPARISON: None. FINDINGS: Uterus: Uterus is anteverted and enlarged in size at 9.6 x 5.0 x 4.0 cm. The myometrium is homogeneous. No discrete uterine fibroids. Possible tiny cluster of cysts are noted in right anterior myometrium measures 3 x 3 x 1 mm in size. The endometrium measures 11.8 mm combined thickness. No endometrial mass or fluid. Nabothian cysts and small amount of fluid is seen within endocervical canal. Ovaries: The right ovary measures 3.5 x 1.5 x 1.3 cm, with a calculated ovarian volume of 3.5 cc. The left ovary measures 3.4 x 2.5 x 2.5 cm, with a calculated ovarian volume of 11.1 cc. The ovaries have a normal sonographic appearance. Less than 12 follicles can be seen in each ovary. No adnexal masses are seen. Other: No pathologic free abdominal or pelvic fluid. IMPRESSION: 1. Mildly enlarged uterus. No discrete uterine fibroid is seen. Possible tiny cluster of cysts in right anterior myometrium as above. 2. No endometrial mass or fluid. Nabothian cysts and small amount of fluid is noted in endocervical canal. 3. Normal appearing bilateral ovaries. We strive to produce accurate, complete, and clear reports of imaging services. To assist us in improving patient care, this report was composed using standard report templates and voice recognition software. Therefore, it may contain abnormal punctuation, insertions and/or omissions. Occasional wrong-word or sound-alike substitutions may occur. Though we review the report and make efforts to correct it, we do recommend that the report be read carefully in proper context to recognize any text inaccuracies. Dictated by: Joaquim Mejia M.D. on 01/27/2022 at 17:53 Approved by: Joaquim Mejia M.D. on 01/27/2022 at 17:56
== END ==
PROVIDERS: PCP Family Medicine; Referring Provider Obstetrics & Gynecology; Visit Provider Obstetrics & Gynecology
DX: N94.6 Dysmenorrhea, unspecified (principal); N83.209 Unspecified ovarian cyst, unspecified side; N85.2 Hypertrophy of uterus
CPT/HCPCS: 76830; 76856

== ENCOUNTER → 2022-09-13 12:12 | Outpatient (CLI) | payer OTHER, MEDICAID, SELFPAY ==
--- NOTE | 2022-09-13 | DI.MRI.S_ITS ---
PROCEDURE: MR BRAIN (PITUITARY) O CON INDICATIONS: Hyperprolactinemia TECHNIQUE: Noncontrast sagittal and axial FLAIR, axial gradient echo, axial diffusion and ADC through the brain. Thin-slice sagittal and coronal T1 spin echo, coronal T2 fast spin echo through the pituitary. After the administration contrast, optional dynamic coronal T1 spin echo, thin-slice coronal and sagittal T1 spin echo images through the pituitary fossa; axial and coronal and sagittal T1 spin echo with fat saturation through the brain. COMPARISON: [facility], CT, CT HEAD/BRAIN WO CON, 06/04/2020, 8:22. FINDINGS: Image quality: Excellent. Pituitary Gland: The pituitary gland demonstrates normal signal and bulk. On the postcontrast imaging, no masses or abnormally enhancing areas are seen. The pituitary stalk and infundibulum have an unremarkable appearance. A normal appearing pituitary bright spot is seen posteriorly on the precontrast sagittal T1-weighted images. The optic chiasm and the ventral forebrain have an unremarkable appearance. CSF Spaces: Ventricles are normal in size and shape. Basal cisterns are patent. No extra-axial fluid collections. Brain: No intracranial bleeds or mass effects. No abnormal intracranial enhancement. Shaw-white matter interface is intact. Diffusion weighted images demonstrate no acute ischemic insults. Brainstem is normal. Normal intravascular flow voids are present. Skull and face: Calvarial marrow is normal in signal. Orbits appear normal. Sinuses: Sinuses and mastoids are clear. IMPRESSION: Normal pituitary, without a cause of hyperprolactinemia identified. Dictated by: Norman Martin M.D. on 09/15/2022 at 10:01 Approved by: Norman Martin M.D. on 09/15/2022 at 10:03
== END ==
PROVIDERS: PCP Internal Medicine; Referring Provider Specialist; Visit Provider Specialist
DX: E22.1 Hyperprolactinemia (principal)
CPT/HCPCS: 70553; A9579

== ENCOUNTER → 2023-03-09 11:27 | Outpatient (CLI) | payer OTHER, MEDICAID, SELFPAY ==
--- NOTE | 2023-03-09 | DI.MRI.S_ITS ---
PROCEDURE: MR SHOULDER RT WO CON INDICATIONS: Bilateral shoulder pain TECHNIQUE: Noncontrast oblique coronal T2 fast spin echo with fat saturation, oblique sagittal T1 spin echo and T2 fast spin echo with fat saturation, axial T1 spin echo and T2 fast spin echo with fat saturation through the shoulder. COMPARISON: [facility], MR, MR SHOULDER LT WO CON, 03/09/2023, 11:43. [facility], CR, XR SHOULDER 2+ VIEWS BILATERAL, 02/10/2023, 10:04. FINDINGS: Image quality: Excellent. Rotator cuff: There is [id number] supraspinatus, infraspinatus and subscapularis tendinosis. Low-grade partial-thickness tear is present along both articular and bursal surfaces of the distal supraspinatus tendon. No rotator cuff muscle atrophy. Bones and bursae: No bone marrow contusions or fractures. Mild acromioclavicular joint degeneration. The acromion demonstrates conventional anatomy, without an os acromiale. There is a small amount of subcoracoid bursal fluid suggesting mild bursitis. There is prominent red marrow. Capsule and soft tissues: Labrum appears intact. The long head of the biceps tendon demonstrates normal location and morphology. The rotator interval appears normal, without fibrosis. The coracohumeral ligament is normal in thickness. IMPRESSION: 1. [id number] supraspinatus, infraspinatus and subscapularis tendinosis. No high-grade tendon tear. Low-grade partial thickness tear is present in the distal supraspinatus tendon. No rotator cuff muscle atrophy. 2. Mild acromioclavicular joint degeneration. 3. Mild subcoracoid bursitis. 4. Prominent red marrow. This finding could be secondary to anemia or other hematological disorder. Recommend clinical correlation. Dictated by: Liliana Kulkarni M.D. on 03/09/2023 at 17:08 Approved by: Liliana Kulkarni M.D. on 03/09/2023 at 18:36
--- NOTE | 2023-03-09 | DI.MRI.S_ITS ---
PROCEDURE: MR SHOULDER LT WO CON INDICATIONS: Bilateral shoulder pain TECHNIQUE: Noncontrast oblique coronal T2 fast spin echo with fat saturation, oblique sagittal T1 spin echo and T2 fast spin echo with fat saturation, axial T1 spin echo and T2 fast spin echo with fat saturation through the shoulder. COMPARISON: [facility], MR, MR SHOULDER RT WO CON, 03/09/2023, 12:02. [facility], CR, XR SHOULDER 2+ VIEWS BILATERAL, 02/10/2023, 10:04. FINDINGS: Image quality: Excellent. Rotator cuff: There is mild supraspinatus, infraspinatus and subscapularis tendinosis. There is low-grade partial-thickness tendon along the articular surface of the supraspinatus tendon. No rotator cuff muscle atrophy. Bones and bursae: No bone marrow contusions or fractures. Very mild acromioclavicular joint degeneration. The acromion demonstrates conventional anatomy, without an os acromiale. No pathologic subacromial-subdeltoid or subcoracoid bursal fluid is present. Noted is made of prominent red marrow. Capsule and soft tissues: Labrum is intact. The long head of the biceps tendon demonstrates normal location and morphology. The rotator interval appears normal, without fibrosis. The coracohumeral ligament is normal in thickness. Mild left axillary lymphadenopathy. IMPRESSION: 1. Mild rotator cuff tendinosis with low-grade partial-thickness articular surface tear of the supraspinatus tendon. No rotator cuff muscle atrophy. 2. Very mild acromioclavicular joint degeneration. 3. Mild axillary lymphadenopathy. Recommend clinical follow-up. 4. Prominent red marrow. The finding is nonspecific. Etiologies may be anemia or hematological disorders. Recommend clinical correlation. Dictated by: Liliana Kulkarni M.D. on 03/09/2023 at 17:07 Approved by: Liliana Kulkarni M.D. on 03/09/2023 at 18:29
== END ==
PROVIDERS: PCP Internal Medicine; Referring Provider Physician Assistant; Visit Provider Physician Assistant
DX: M75.112 Incomplete rotator cuff tear or rupture of left shoulder, not specified as traumatic (principal); M75.111 Incomplete rotator cuff tear or rupture of right shoulder, not specified as traumatic; M19.011 Primary osteoarthritis, right shoulder; M75.51 Bursitis of right shoulder; M25.511 Pain in right shoulder; M25.512 Pain in left shoulder; R59.0 Localized enlarged lymph nodes
CPT/HCPCS: 73221

== ENCOUNTER 2023-03-17 04:08 | Emergency (ER) | payer OTHER, MEDICAID, SELFPAY ==
[2023-03-17 04:20] VITALS: BP 142/72; PULSE 92; RESP 18; TEMP 37.1; O2SAT 100; BMI 27.3
[2023-03-17 04:34] LABS: Appearance Urine UA SL CLOUDY; Bilirubin Urine UA NEGATIVE (NEGATIVE); Color Urine UA YELLOW; Glucose Urine UA NEGATIVE (Negative); Ketones Urine UA NEGATIVE (NEGATIVE); Leukocyte Esterase Urine UA 2+ (NEGATIVE); Nitrite Urine UA POSITIVE (Negative); Occult Blood Urine UA TRACE-INTACT (Negative); Protein Urine UA NEGATIVE (Negative)
[2023-03-17 04:37] LABS: Pregnancy Test Urine Negative (Negative)
--- NOTE | 2023-03-17 04:38 | ED_ITS ---
HPI - Female Genitourinary General Chief complaint: Urogenital-Female Stated complaint: Kidney infection Time Seen by Provider: 03/17/23 04:25 Source: patient Mode of arrival: Ambulatory History of Present Illness HPI Narrative: 32-year-old female with 3 days dysuria and frequency and now having right flank pain. She is not had fevers but she says she is had some chills and nausea. She is not been vomiting. Does not have a history of recurrent UTIs by her report. Last menstrual period was about 2 weeks ago and normal. State there is no chance that she could be . No previous abdominal surgeries no changes in bowel habits. Related Data Previous Rx's Medication Instructions Recorded naproxen 500 mg tablet 500 mg PO Q8H PRN pain #30 tabs 04/01/22 tranexamic acid 650 mg tablet 1,300 mg (2 x 650 mg) PO TID Heavy 04/01/22 periods #30 tabs cefdinir 300 mg capsule 300 mg PO BID #20 caps 03/17/23 Allergies Allergy/AdvReac Type Severity Reaction Status Date / Time tramadol AdvReac Mild Hives, Verified 04/01/22 14:30 Vomitting Patient History Medical History Acne Anxiety Benign familial tremor (~2017) Cardiac arrhythmia (~2019) Cervical somatic dysfunction Chicken pox (~1992) Chronic back pain (~2017) Chronic bilateral thoracic back pain Chronic low back pain Chronic neck pain Cranial somatic dysfunction Fractures (~2017) Headache (~2017) Hearing loss (~2017) Heavy menstrual period (~2003) Hip pain Hypertension (~2017) Lumbar region somatic dysfunction Memory problem (~2017) Migraines (~2019) Pain provoked by trauma Painful menstrual periods (~2003) Pelvic somatic dysfunction PTSD (post-traumatic stress disorder) (~2017) Recurrent sinusitis (~2019) Restless leg syndrome (~2019) Rib pain on right side Sacral region somatic dysfunction Scoliosis (~2004) Segmental and somatic dysfunction of abdomen and other regions Segmental and somatic dysfunction of rib cage Thoracic region somatic dysfunction Trauma (~2017) Vertigo (~2017) Vision disorder Vocal cord paralysis (~2017) Surgical History (~05/30/20) Anesthesia History of tonsillectomy (~2006) Family History Mother Cancer Hyperlipidemia Stroke Low blood pressure Kidney disease Grandfather History of emphysema Grandfather History of heart disease Father No problems noted. tobacco type: cigarettes alcohol intake frequency: holidays/special occasions only Substance Use Type: marijuana Exam Initial Vital Signs Initial Vital Signs: Vital Signs Temperature 98.7 F 03/17/23 04:20 Pulse Rate 92 H 03/17/23 04:20 Respiratory Rate 18 03/17/23 04:20 Blood Pressure 142/72 H 03/17/23 04:20 Pulse Oximetry 100 03/17/23 04:20 Oxygen Delivery Method Room Air 03/17/23 04:20 Const General: healthy appearing and No acute distress Resp Effort & Inspection: normal respiratory effort Cardio Rate: regular rate GI Palpation: soft, tender (Mild tenderness without rebound allow the right periumbilical and right upp) and other Other: Right CVAT Skin General: no rashes or lesions noted, dry skin and warm Neuro General: patient alert and patient oriented x3 Course Orders Ordered: ED Orders 03/17/23 04:21 Ictotest Urine Stat Test Urine Stat Urinalysis and Microscopic Stat 03/17/23 04:31 Urine Culture Stat Discontinued Medications Cefdinir (Cefdinir 300 Mg Capsule) 300 mg PO NOW ONE Stop: 03/17/23 04:57 Last Admin: 03/17/23 05:06 Dose: 300 mg Vital Signs Vital signs: Vital Signs - 8 hr 03/17/23 04:20 Temperature 98.7 F Pulse Rate 92 H Respiratory Rate 18 Blood Pressure 142/72 H Pulse Oximetry 100 Oxygen Delivery Method Room Air MDM - Female Genitourinary Lab Data Lab results narrative: Urine test is negative, urinalysis is positive for pyuria and nitrates Labs: Lab Results 03/17/23 Range/Units 04:21 Urine Color Yellow Urine Appearance Sl cloudy Urine pH 6.0 (4.5-8.0) Ur Specific Lilly 1.020 (1.000-1.035) Urine Protein Negative (Negative) Urine Glucose (UA) Negative (Negative) g/dL Urine Ketones Negative (NEGATIVE) Urine Occult Blood Trace-intact (Negative) Urine Nitrate Positive H (Negative) Urine Bilirubin Negative (NEGATIVE) Ur Bilirubin Confirm TNP Urine Urobilinogen 1.0 (0.2) E.U./dL Ur Leukocyte Esterase 2+ H (NEGATIVE) Urine RBC 0-1/hpf (0-5/HPF) Urine WBC 30-100/hpf H (0-5/HPF) Ur Squamous Epith Cells 0-1 /hpf (0-5/HPF) Ur Transition Epith Cell 0-1/hpf (0-5/HPF) Urine Bacteria Moderate (10-30) H (None) Urine Test Negative (Negative) Urine Dip Bedside Urine Glucose Negative Bedside Urine Bilirubin + 1 Bedside Urine Ketone - Negative Urine Specific Lilly 1.020 Bedside Urine Occult Blood ++ Bedside Urine pH 6 Bedside Urine Protein - Negative Bedside Urine Urobilinogen - Negative Bedside Urine Nitrite + Positive Bedside Urine Leukocytes +++ 500 Esterase MDM Narrative Medical decision making narrative: 32-year-old female with urinary symptoms and flank pain. Vital signs are normal she is nontoxic in appearance she is not . Does not have significant hematuria I do not think this is ureteral stone. She is not workup suggest pyelonephritis. Started her on cefdinir recommended she follow up in the emergency department if not improving or if getting worse. Discharge Plan Departure Patient Disposition: Home Clinical Impression: Pyelonephritis Instructions: DI for Kidney Infection Activity Restrictions/Additional Instructions: We are treating you today for a kidney infection. Take the prescribed antibiotics for the full course. You can use ibuprofen or naproxen and or acetaminophen as needed for pain. If you are having uncontrolled vomiting increasing pain or getting worse recheck in the emergency department. I would expect you to be improving within 24 hours. If not recheck in the emergency department. Follow-up soon with her primary care provider. Prescriptions: New cefdinir 300 mg capsule 300 mg PO BID Qty: 20 0RF No Action tranexamic acid 650 mg tablet 1,300 mg PO TID Qty: 30 12RF Rx Instructions: Start medication with the start of each period naproxen 500 mg tablet 500 mg PO Q8H PRN (Reason: pain) Qty: 30 12RF Rx Instructions: For best effect, start medication 1-2 days prior to expected onset of period Referrals: Ksenia Garcia MD [Primary Care Provider] - Stand Alone Forms: Patient Portal/API
[2023-03-17 04:47] LABS: Bacteria Urine Moderate (10-30); RBC Urine 0-1/HPF (0-5/HPF); Squamous Epithelial Cell Urine 0-1 /HPF (0-5/HPF); Transitional Epi Cells Urine 0-1/HPF (0-5/HPF); WBC Urine 30-100/HPF (0-5/HPF)
[2023-03-17] MEDS: CEFDINIR 300 MG CAPSULE PO (05:06)
== END 2023-03-17 05:09 | disposition home or self-care (01) ==
PROVIDERS: Emergency Provider Emergency Medicine; PCP Internal Medicine
DX: N12 Tubulo-interstitial nephritis, not specified as acute or chronic (principal)
CPT/HCPCS: 81001; 81003; 81025; 87077; 87086; 87186; 99283

== ENCOUNTER → 2023-05-12 16:10 | Outpatient (CLI) | payer OTHER, MEDICAID, SELFPAY ==
--- NOTE | 2023-05-12 | DI.MRI.S_ITS ---
PROCEDURE: MR THORACIC SPINE WO CON INDICATIONS: LUMBAR FACET ARTHROPATHY/THORACIC SPONDYLOSIS TECHNIQUE: Noncontrast sagittal T1 spine echo and T2 fast spin echo, sagittal STIR, and T2 fast spin echo through the thoracic spine. COMPARISON: [facility], MR, MR LUMBAR SPINE WO CON, 05/12/2023, 16:22. [facility], MR, MR CERVICAL SPINE WO CON, 05/12/2023, 16:22. [facility], CR, XR THORACIC SPINE 2 VIEWS, 11/17/2022, 15:16. FINDINGS: Image quality: This examination is limited by involuntary motion artifact. Alignment and Curvature: Mild levoconvex scoliotic curvature is noted. No focal AP alignment abnormality is seen. Bone Marrow: Marrow is of normal overall signal. No acute vertebral body compression fractures. Spinal Cord: Visualized spinal cord is normal in size and signal. Paraspinous Soft Tissues: No paravertebral masses. Miscellaneous: No significant disc pathology can be seen. No significant neural foraminal or central canal narrowing can be seen. IMPRESSION: Thoracic spine MRI within normal limits. Dictated by: Norman Martin M.D. on 05/12/2023 at 17:06 Approved by: Norman Martin M.D. on 05/12/2023 at 17:07
--- NOTE | 2023-05-12 | DI.MRI.S_ITS ---
PROCEDURE: MR LUMBAR SPINE WO CON INDICATIONS: LUMBAR FACET ARTHROPATHY/THORACIC SPONDYLOSIS TECHNIQUE: Noncontrast sagittal T1 spin echo and T2 fast echo, sagittal STIR, and T2 fast spin echo through the lumbar spine. In cases with scoliosis, additional coronal T2 fast spin echo may be performed. COMPARISON: [facility], MR, MR THORACIC SPINE WO CON, 05/12/2023, 16:22. [facility], MR, MR CERVICAL SPINE WO CON, 05/12/2023, 16:22. [facility], CR, XR LUMBAR SPINE WITH FLEXION EXTENSION 5 VIEWS, 02/05/2023, 14:46. FINDINGS: Image quality: Diagnostic, with note made of motion artifact. Alignment and Curvature: There is normal bony alignment. Bone Marrow: Marrow is of normal overall signal. No acute vertebral body compression fractures. Spinal Cord: Conus medullaris terminates at the T12-L1 level. Visualized cord demonstrates normal signal and size. Paraspinous Soft Tissues: No paravertebral masses. T12-L1: Normal appearance. L1-L2: Normal appearance. L2-L3: Normal appearance. L3-L4: Normal appearance. L4-L5: The disc height is well-preserved. Loss of disc signal is seen at this level. Mild to moderate disc bulge is seen, with a central disc protrusion. There is a focal annular fissure seen posteriorly. Moderate facet joint hypertrophy is seen. Moderate bilateral neural foraminal narrowing is seen. Mild central canal narrowing is seen. L5-S1: Normal appearance. IMPRESSION: Focal L4-L5 degenerative change can be seen, with a central disc protrusion, with an associated annular fissure posteriorly. Dictated by: Norman Martin M.D. on 05/12/2023 at 17:07 Approved by: Norman Martin M.D. on 05/12/2023 at 17:09
--- NOTE | 2023-05-12 | DI.MRI.S_ITS ---
PROCEDURE: MR CERVICAL SPINE WO CON INDICATIONS: LUMBAR FACET ARTHROPATHY/THORACIC SPONDYLOSIS TECHNIQUE: Noncontrast sagittal T1 spin echo and T2 fast spin echo, sagittal STIR, foraminal oblique sagittal T2 fast spin echo, and axial gradient echo or T2 fast spin echo through the cervical spine. COMPARISON: [facility], MR, MR LUMBAR SPINE WO CON, 05/12/2023, 16:22. [facility], MR, MR THORACIC SPINE WO CON, 05/12/2023, 16:22. [facility], CR, XR CERVICAL SPINE WITH FLEXION EXTENSION, 11/17/2022, 15:16. FINDINGS: Image quality: This examination is limited by involuntary motion artifact. Alignment and Curvature: There is overall straightening of the normal cervical lordosis. No focal AP alignment abnormality is seen. Bone Marrow: Marrow demonstrates normal overall signal. Spinal Cord: Visualized spinal cord has normal size and signal. No cerebellar tonsillar herniation. Paraspinous Soft Tissues: No paravertebral masses. Prevertebral soft tissues are normal in thickness. C2-C3: Normal appearance. C3-C4: Normal appearance. C4-C5: Normal appearance. C5-C6: Normal appearance. C6-C7: Normal appearance. C7-T1: Normal appearance. IMPRESSION: No disc pathology is seen, neural foraminal narrowing, or central canal narrowing can be seen. Dictated by: Norman Martin M.D. on 05/12/2023 at 17:15 Approved by: Norman Martin M.D. on 05/12/2023 at 17:16
== END ==
PROVIDERS: PCP Internal Medicine; Referring Provider Physician Assistant; Visit Provider Physician Assistant
DX: M47.27 Other spondylosis with radiculopathy, lumbosacral region; M47.26 Other spondylosis with radiculopathy, lumbar region; M51.16 Intervertebral disc disorders with radiculopathy, lumbar region; M47.812 Spondylosis without myelopathy or radiculopathy, cervical region; M47.814 Spondylosis without myelopathy or radiculopathy, thoracic region; G56.01 Carpal tunnel syndrome, right upper limb; M54.2 Cervicalgia
CPT/HCPCS: 72141; 72146; 72148